=== PATIENT | male | born 1980 | race Caucasian/White ===

== ENCOUNTER → 2017-01-14 | Day surgery (SDC) | payer OTHER ==
[2017-01-14] VITALS (8 sets, daily range): BP systolic 131–149; BP diastolic 85–102; PULSE 69–91; RESP 12–20; O2SAT 94–99
[~2017-01-14] VITALS: Ht 180.3 cm; Wt 109.3 kg
[~2017-01-14] MED LIST: Bupivacaine-MPF 0.25% 30 mL Inj INFILTRATE ONE; CeFAZolin 2 Gm/50 mL D5W Duplex Bag IV ONE; CeFAZolin 2 Gm/50 mL D5W IV Premix IV ONE; Dexamethasone 4 mg/mL Inj IVPUSH PRN; EPHEDrine Sulfate 50 mg/mL Inj IVPUSH PRN; HYDR-4003 PO; HYDROmorphone 1 mg/mL Inj IVPUSH PRN; Lactated Ringer's 1,000 ML IV SCH; Lactated Ringer's 500 ML IV PRN; MELA5TAB14 PO; MULT-1018 PO; MetoCLOpramide 5 mg/mL 2 mL Inj IVPUSH PRN; NAPR220C11 PO; Ondansetron 2 mg/mL 2 mL Inj IVPUSH PRN; Ondansetron 2 mg/mL 2 mL Inj ONE; Phenylephrine 10,000 mCg/mL Inj IVPUSH PRN; Propofol 10,000 mCg/mL 20 mL Inj ONE; fentaNYL-PF 50 mCg/mL 2 mL Inj IVPUSH PRN; fentaNYL-PF 50 mCg/mL 2 mL Inj ONE; oxyCODONE-Acetamin 5-325 mg Tablet PO PRN
[2017-01-14] MEDS: Lactated Ringer's 1,000 ML IV SCH ×2 (11:03→13:25)
--- NOTE | 2017-01-14 13:45 | PCM.HPANE ---
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 Provider: Attending Provider:Nimesh Martinez DO Primary Care Physician:Georgette Other Provider:Allegra Hawkins Anesthesia Reason for Visit Right Distal Biceps Tendon Rupture Ht/WT & BMI Height (Feet): 5 Height (Inches): 11 Weight (Kilograms): 109.3 Body Mass Index 33.00 Allergies Coded Allergies: No Known Allergies (Unverified , 01/14/17) Past Anesthesia History Anesthesia History: Denies:: Abnormal Airway, Anesthesia Reactions, Difficult Intubation, Fam Anesthesia Reaction Diabetes History Hx Diabetes?: No MRSA MRSA: No Medications Hypertension Medication: No Home Meds Incl Beta Hemal: No Reported Medications Melatonin 5 Mg Tablet5 Mg PO 01/14/17 Multivitamin (Multi Vitamin Daily)1 Each Tablet1 Each PO DAILY 30 Days Ref 0 01/14/17 Naproxen Sodium (Aleve)220 Mg Cteanhw300 Mg PO PRN For Pain 01/12/17 Discontinued Reported Medications Hydrocodone-Acetaminophen 5-325 mg 1 Each Tablet1 Tablet PO Q8H PRN For Pain Ref 0 01/12/17 History History of ENT Problems?: Yes HEENT History: Positive for:: TMJ (grinds, no nightguard) Denies:: Abnormal Airway Cataracts Difficult Intubation Dysphagia Glaucoma Hearing Problem Sinus Problem Denture Type: None Teeth Condition: Within Normal Limits Hx of Heart Problems?: No Cardiovascular History: Positive for:: Chest Pain (off/on years - never been worked up) Denies:: AICD Abdominal Aortic Aneurism Atrial Fibrillation Edema Heart Murmur Hypertension Irregular Heartbeat Pacemaker Peripheral Vascular Hx of Respiratory Problem?: No Respiratory History: Denies:: Asthma COPD Emphysema Oxygen Administration Pneumonia Tuberculosis Use of C-PAP Machine Hx Neurologic Problems?: No Neurological History: Denies:: CVA Headaches Multiple Sclerosis Parkinson's Disease TIA Hx of GI Problems?: No Hx of Problems?: No Genitourinary History: Denies:: Kidney Stones Urinary Tract Infection HX of Peritoneal Dialysis: No Male Hx: Denies:: Prostate Problems Skin History: Denies:: History Skin Disorders? Pressure Ulcers Hx Musculoskeletal Problems?: Yes Musculoskeletal History: Positive for:: Musculoskeletal Trauma (right distal biceps rupture current admission problem) Denies:: Back Injury Fibromyalgia Joint Replacement Osteoarthritis Hx of Psycho/Social Problems?: No Psycho Social History: Denies:: Anxiety Hx Depression Hx Surgeries?: Yes Hx Any Other Health Problems?: Yes Other History: Denies:: Cancer Thyroid Disease History Blood Transfusions: Positive for:: Accept Blood Products? Denies:: Blood Transfusions Hx Diabetes: No Hx Alcohol Use: YesAlcoholic Drinks Per Day: couple drinks weekHx Substance Use: NoHave You Smoked inLast 12 mo: No Stop/Bang S-Snoring: Do You Snore Loudly: No T-Tired: feel tired, fatigued: Yes O-Obsered: Observed not breath: No P-Blood Pressure: treated: No B- Body Mass Index > 35 kg/m2: No A- Age over 50: No N- Neck Large Circumference: No G- Gender Male: Yes BOAZ Total Score: 2 BOAZ Risk Assessment: Low Risk, <3 Yes Risk Assessment Category Category 1A: Patient has history of documented sleep apnea, and HAS NOT received any narcotic, sedative or anesthesia administration during this stay. Category 1B: Patient has history of documented sleep apnea, and HAS received any narcotic , sedative or anesthesia administration during this stay Category 2: Patient has SUSPECTED Obstructive Sleep Apnea, and HAS received any narcotic , sedative or anesthesia administration during this stay. Category 3: Patient has SUSPECTED Obstructive Sleep Apnea and HAS NOT received narcotic, sedative or anesthesia administration during this stay. Category 4: Outpatient in Procedural Areas with known sleep apnea or who screen positive for High Risk via the STOP/BANG questionnaire. Exam Exam Vital Signs Vital Signs Date Time Temp Pulse Resp B/P Pulse Ox O2 Delivery O2 Flow Rate FiO2 01/14/17 11:18 36.5 69 16 138/97 99 Room Air General Appearance: Alert HEENT/AIRWAY: MP 2 Lungs: Clear to Auscultation Heart: Exam Unremarkable Meds/Labs/Diagnostics Admission Meds Current Medications Lactated Ringer's (Lr) 1,000 ml @ 120 mls/hr Q8H20M IV Last administered on t 11:03; Start 01/14/17 at 05:00; Stop 01/14/17 at 13:19 Plan Impression Patient chart reviewed, patient interviewed and anesthestic plan with risks, benefits, and alternatives discussed, and informed consent obtained. ASA Physical Status: ASA1 Normal Healthy Anesthetic Plan: GA Bene/Risks/Altern/Consents: Yes HP Complete Prior to Induction: Yes Ludy Mazariegos MD Jan 14, 2017 13:45
--- NOTE | 2017-01-14 19:27 | OP ---
[address] [address] OPERATIVE REPORT PATIENT: LESLY HOLLOWAY : 1980 MR#: [id number] ADMIT: 01/14/2017 JOB ID: [id number] DATE OF SURGERY: 01/14/2017 SURGEON: Nimesh Martinez DO PILOT BOAT OPERATOR: Saleem Morillo PA-C (The assistance of SOFIA Farah was necessary for help with retraction during the case as well as for primary closure at the conclusion of the case). PREOPERATIVE DIAGNOSIS(ES): Right distal biceps tendon rupture. POSTOPERATIVE DIAGNOSIS(ES): Right distal biceps tendon rupture. PROCEDURE: Reinsertion of right distal biceps tendon. ANESTHESIA: General. HISTORY: The patient is a pleasant, 36-year-old male that was lifting a box when he felt a pop to his elbow. He had pain and weakness. He presented to me with an MRI demonstrating a near complete distal biceps tendon rupture with very minimal residual fibers remaining. I discussed with the patient the option as he presented with weakness; especially with supination, to proceed either with continued conservative treatment versus operative intervention. He understood the risks include, but not limited to, neurovascular injury, tendon injury, infection, failure of fixation, stiffness, persistent pain, all of which may require further intervention. Patient had all his questions answered. Consent was signed and placed in the chart. PROCEDURE IN DETAIL: The patient brought to the operating suite and placed supine on the operating room table. Surgical time-out performed and everyone in the room was in agreement. After appropriate anesthesia was obtained, a right upper arm tourniquet was applied. The right upper extremity prepped and draped in a sterile fashion. Right upper extremity was exsanguinated, tourniquet inflated to 250 mmHg. A longitudinal incision was made in the proximal volar forearm just distal to the elbow crease at the interval between the pronator teres and the brachioradialis. Dissection was carried down to the bicipital tendon which was dissected down towards its insertion revealing a nearly fully ruptured distal biceps tendon. There was a few residual fibers that were easily dissected off of the tuberosity. There was a significant mop end appearance at the end of the distal biceps. This was cleaned up from the surrounding fibrous tissues until exposed tendon end was appreciated. Next, utilizing a #2 FiberLoop, a whipstitch was placed in the distal aspect of the tendon. The loop was then cut and passed through the Arthrex distal biceps tendon button. Attention was then turned towards exposing the tuberosity. The tuberosity was exposed with manual retraction. Residual fibers were debrided off of the tuberosity. A K-wire for the planned placement of the distal biceps tendon was inserted at the center of the radial tuberosity. The position of the wire was verified under fluoroscopy. The tendon was sized out to a 7 mm, thus the a wire was overreamed to 7.5. Copious irrigation was performed to ensure that all bony fragments were removed from the operative field. Next, the Arthrex distal biceps tendon button was shuttled through the prepared hole, and with pulling on the suture ends, the distal biceps tendon was delivered into its bed within the radial tuberosity. Slight flexion of the elbow was performed while tightening down, delivering the distal biceps tendon. A free needle was then utilized to pass one of the limbs of the free suture through the distal aspect of the tendon and then tied back onto its self securing the fixation. This was followed by application of an interference screw. Copious irrigation was then performed. The tourniquet deflated. Final hemostasis achieved. Subcutaneous tissues closed with Vicryl and Stratafix for the skin which was further reinforced with Steri-Strips. The patient was then placed into a well-padded, well-molded long-arm posterior splint. ESTIMATED BLOOD LOSS: Less than 5 cc. COMPLICATIONS: None. DISPOSITION: The patient tolerated the procedure well. Anesthesia was reversed. The patient was transferred to the PACU for recovery. IMPLANTS: An Arthrex distal biceps tendon button with an interference screw. POSTOPERATIVE PLAN: The patient will follow up in office in two weeks for a wound recheck and to have him start working on gentle elbow range of motion at that time. He will be 6-8 weeks postop before initiating any strengthening and likely 3-4 months before allowing him to return to full activity.
== END | disposition home or self-care (01) ==
LOC: SAS 10:48
PROVIDERS: ATTEND Orthopaedic Surgery
DX: S46.211A Strain of muscle, fascia and tendon of other parts of biceps, right arm, initial encounter (principal); M65.4 Radial styloid tenosynovitis [de Quervain]; X50.0XXA Overexertion from strenuous movement or load, initial encounter; Y93.89 Activity, other specified; J45.909 Unspecified asthma, uncomplicated
CPT/HCPCS: 24342; 76001; C1713; J0690; J2250; J2405; J2704; J3010; J7120